=== PATIENT | female | born 1950 | race Hispanic/Latino ===

== ENCOUNTER 2018-06-04 23:00 | Emergency (ER) | payer MEDICARE ==
[~2018-06-04] VITALS: Ht 157.5 cm; Wt 81.6 kg
[2018-06-04] MEDS ORDERED: ONDANSETRON HCL INJ 2 MG/ML VIAL IV ONE (23:30)
[2018-06-04] MEDS ORDERED: SODIUM CHLORIDE 0.9% 1000ML 1,000 ML ONE (23:30)
[2018-06-05] MEDS ORDERED: ZOFRAN ODT4 MG PO (00:14)
== END 2018-06-05 01:00 | disposition home or self-care (01) ==
LOC: FSED 23:00
DX: R11.2 Nausea with vomiting, unspecified (principal); R19.7 Diarrhea, unspecified; A08.11 Acute gastroenteropathy due to Norwalk agent; S83.421A Sprain of lateral collateral ligament of right knee, initial encounter; X50.1XXA Overexertion from prolonged static or awkward postures, initial encounter; I10 Essential (primary) hypertension; E78.5 Hyperlipidemia, unspecified; E03.9 Hypothyroidism, unspecified; Z85.51 Personal history of malignant neoplasm of bladder
CPT/HCPCS: 80053; 85025; 99284; J2405; J7030